=== PATIENT | female | born 1945 | race Caucasian/White ===

== ENCOUNTER 2018-11-25 13:16 | Emergency (ER) | payer MEDICARE, OTHER ==
[~2018-11-25] VITALS: Ht 172.7 cm; Wt 86.4 kg
[~2018-11-25 13:16] MED LIST: ASPIRIN CHEWABL81 MG OR; ASPIRIN81 MG PO; COLACE100 MG OR; COREG3.125 MG PO; COUMADIN2.5 MG PO; COUMADIN4 MG PO; COUMADIN5 MG OR; COUMADIN5 MG PO; COUMADIN7.5 MG OR; CRESTOR20 MG OR; DARVOCET-N 100100 MG OR; EQL PAIN RELIE500 MG PO; FLEXERIL PO; FUROSEMIDE20 MG PO; GABAPENTIN100 MG PO; GABAPENTIN400 MG PO; HYDROXYZ HCL25 MG OR; IMDUR30 MG PO; JANTOVEN5 MG OR; K-DUR/KLOR-CON10 ME1 PO; K-DUR/KLOR-CON10 MEQ PO; LASIX20 MG PO; LIPITOR40 MG PO; LOPRESSOR25 M1 PO; LOPRESSOR25 MG PO; LORTAB 1010 MG PO; LORTAB 5 OR; LORTAB 7.5 OR; LORTAB5 PO; MACROBID100 MG OR; MACROBID100 MG PO; MULTIVITAM10 OR; NEURONTIN100 MG PO; OMEPRAZOLE20 MG PO; OXYCOD/APAP1 TA3 PO; PRILOSEC20 MG/CAP PO; SENNA S1 TAB PO; SIMVASTATIN10 MG PO; SIMVASTATIN80 MG OR; TYLENOL325 MG OR; TYLENOL500 MG OR; ULTRAM50 M1 PO; ULTRAM50 MG OR; ULTRAM50 MG PO; WARFARIN2.5 MG PO; WARFARIN3 MG PO; WARFARIN5 MG PO; ZETIA10 MG OR; ZETIA10 MG PO; ZITHROMAX250 MG OR; ZITHROMAX500 MG OR; ZOCOR10 MG OR
[2018-11-25 14:40] LABS: HEMATOCRIT 38.3 % (37.0-47.0); HEMOGLOBIN 12.3 g/dl (12.0-16.0); IMMATURE GRANULOCYTES 0.2 % (0.0-5.0); MEAN CELL VOLUME 85.1 fL CALC (80.0-100.0); MEAN CORPUSCULAR HGB 27.3 pG CALC (26.0-32.0); MEAN CORPUSCULAR HGB CONC 32.1 g/L CALC (32.0-36.0); NEUT# 3.36 thou/uL (2.00-7.15); RED BLOOD COUNT 4.5 mill/uL (4.20-5.60); RED CELL DISTRI WIDTH 14.6 % (11.5-15.5)
[2018-11-25 14:46] LABS: ALBUMIN 3.9 g/dL (3.2-5.0); BILIRUBIN, TOTAL 0.7 mg/dL (0.0-1.4); CREATININE 1.2 mg/dL (0.5-1.0); POTASSIUM 3.8 mmol/l (3.5-5.1); TOTAL PROTEIN 6.3 g/dL (6.3-8.2)
[2018-11-25 17:36] LABS: URINE BILIRUBIN - DIPSTICK NEGATIVE (NEGATIVE); URINE BLOOD DIPSTICK SMALL (NEGATIVE); URINE COLOR YELLOW; URINE GLUCOSE - DIPSTICK NEGATIVE (NEGATIVE); URINE KETONE NEGATIVE (NEGATIVE); URINE LEUK ESTERASE NEGATIVE (NEGATIVE); URINE NITRITE - DIPSTICK NEGATIVE (Negative); URINE PROTEIN - DIPSTICK NEGATIVE (NEG-TRACE); URINE UROBILINOGEN - DIPSTICK 0.2 E.U./dL (0.2)
[2018-11-25 17:49] LABS: URINE SQUAMOUS EPITHELIAL CELL FEW EPI/hpf (0-FEW)
[2018-11-25 18:25] VITALS: BP 113/73
== END 2018-11-25 18:53 | disposition home or self-care (01) ==
LOC: ED 13:16
PROVIDERS: Emergency Medicine
DX: R20.8 Other disturbances of skin sensation (principal); I69.354 Hemiplegia and hemiparesis following cerebral infarction affecting left non-dominant side; I10 Essential (primary) hypertension; I25.10 Atherosclerotic heart disease of native coronary artery without angina pectoris; Z95.1 Presence of aortocoronary bypass graft

== ENCOUNTER 2019-06-13 05:05 | Emergency (ER) | payer MEDICARE, OTHER ==
[~2019-06-13] VITALS: Ht 172.7 cm; Wt 84.1 kg
[2019-06-13 05:55] LABS: HEMATOCRIT 37.2 % (37.0-47.0); HEMOGLOBIN 11.9 g/dl (12.0-16.0); IMMATURE GRANULOCYTES 0.5 % (0.0-5.0); MEAN CELL VOLUME 84.5 fL CALC (80.0-100.0); NEUT# 4.37 thou/uL (2.00-7.15); RED BLOOD COUNT 4.4 mill/uL (4.20-5.60); RED CELL DISTRI WIDTH 15.1 % (11.5-15.5)
[2019-06-13 05:59] LABS: URINE BILIRUBIN - DIPSTICK NEGATIVE (NEGATIVE); URINE BLOOD DIPSTICK MODERATE (NEGATIVE); URINE COLOR YELLOW; URINE GLUCOSE - DIPSTICK NEGATIVE (NEGATIVE); URINE KETONE NEGATIVE (NEGATIVE); URINE PROTEIN - DIPSTICK NEGATIVE (NEG-TRACE); URINE SPECIFIC GRAVITY >=1.030
[2019-06-13] MEDS ORDERED: ELIQUIS5 MG PO (05:59)
[2019-06-13] MEDS ORDERED: PROTONIX40 M2 PO (05:59)
[2019-06-13 06:12] LABS: ALBUMIN 3.8 g/dL (3.2-5.0); ALKALINE PHOSPHATASE 126 u/l (38-126); AMYLASE 75 u/l (30-110); ANION GAP 13 (6-22 (CALC)); BUN 15 mg/dL (8-23); BUN/CREATININE RATIO 12 (12-20 (CALC)); CARBON DIOXIDE 28 mmol/l (22-30); CHLORIDE 104 mmol/l (95-108); CREATININE 1.2 mg/dL (0.5-1.0); GFR 44 ML/MIN (>=60 (CALC)); GFR FOR AFR.AMER. 53 ML/MIN (>=60 (CALC)); LIPASE 327 u/l (23-300); POTASSIUM 3.9 mmol/l (3.5-5.1); SODIUM 142 mmol/l (137-146); TOTAL PROTEIN 6.7 g/dL (6.3-8.2)
[2019-06-13 06:16] LABS: URINE NITRITE - DIPSTICK POSITIVE (Negative)
[2019-06-13 06:17] LABS: URINE LEUK ESTERASE NEGATIVE (NEGATIVE)
[2019-06-13 06:18] LABS: URINE BACTERIA MANY hpf; URINE EPITHELIAL CELLS MODERATE EPI/hpf (0-FEW); URINE RBC 50-100 RBC/hpf (0-5)
[2019-06-13 06:24] LABS: MYOGLOBIN 74 ng/mL (0 - 62)
[2019-06-13 06:30] LABS: SGOT/AST 123 u/l (9-36)
[2019-06-13] MEDS ORDERED: OMNICEF300 M1 PO (07:43)
[2019-06-13 08:27] VITALS: BP 149/69
== END 2019-06-13 08:50 | disposition home or self-care (01) ==
LOC: ED 05:05
PROVIDERS: Emergency Medicine
DX: N39.0 Urinary tract infection, site not specified (principal); I10 Essential (primary) hypertension; B96.20 Unspecified Escherichia coli [E. coli] as the cause of diseases classified elsewhere; Z86.73 Personal history of transient ischemic attack (TIA), and cerebral infarction without residual deficits; Z86.718 Personal history of other venous thrombosis and embolism; Z79.01 Long term (current) use of anticoagulants

== ENCOUNTER 2019-07-22 17:37 | Emergency (ER) | payer MEDICARE, OTHER ==
[~2019-07-22] VITALS: Ht 172.7 cm; Wt 88.0 kg
[~2019-07-22 17:37] MED LIST changes: +ELIQUIS5 MG PO; +OMNICEF300 M1 PO; +PROTONIX40 M2 PO
[2019-07-22] MEDS ORDERED: ULTRAM50 M1 PO (18:24)
[2019-07-22 18:32] VITALS: BP 140/88
== END 2019-07-22 18:49 | disposition home or self-care (01) ==
LOC: ED 17:37
DX: S60.221A Contusion of right hand, initial encounter (principal); I10 Essential (primary) hypertension; I25.10 Atherosclerotic heart disease of native coronary artery without angina pectoris; I69.954 Hemiplegia and hemiparesis following unspecified cerebrovascular disease affecting left non-dominant side; I25.2 Old myocardial infarction; W22.8XXA Striking against or struck by other objects, initial encounter; Z86.718 Personal history of other venous thrombosis and embolism; Z79.01 Long term (current) use of anticoagulants

== ENCOUNTER 2019-10-29 | Emergency (ER) | payer MEDICARE, OTHER ==
[2019-10-30] MEDS ORDERED: NEURONTIN300 MG PO (00:45)
== END 2019-10-30 01:46 | disposition home or self-care (01) ==
DX: S93.402A Sprain of unspecified ligament of left ankle, initial encounter (principal); I69.354 Hemiplegia and hemiparesis following cerebral infarction affecting left non-dominant side; I10 Essential (primary) hypertension; I25.10 Atherosclerotic heart disease of native coronary artery without angina pectoris; W18.39XA Other fall on same level, initial encounter; Y92.512 Supermarket, store or market as the place of occurrence of the external cause; Y99.9 Unspecified external cause status

== ENCOUNTER 2020-05-20 15:15 | Emergency (ER) | payer MEDICARE, OTHER ==
[~2020-05-20] VITALS: Ht 172.7 cm; Wt 86.3 kg
[~2020-05-20 15:15] MED LIST changes: +NEURONTIN300 MG PO
[2020-05-20] MEDS ORDERED: CYCLOBENZAPR5 MG PO (15:27)
[2020-05-20 15:53] VITALS: BP 113/56
== END 2020-05-20 15:47 | disposition home or self-care (01) ==
LOC: ED 15:15
DX: M79.651 Pain in right thigh (principal); I10 Essential (primary) hypertension; I25.10 Atherosclerotic heart disease of native coronary artery without angina pectoris; I25.2 Old myocardial infarction; Z95.1 Presence of aortocoronary bypass graft; Z86.73 Personal history of transient ischemic attack (TIA), and cerebral infarction without residual deficits

== ENCOUNTER 2020-09-23 05:38 | Emergency (ER) | payer MEDICARE, OTHER ==
[~2020-09-23] VITALS: Ht 172.7 cm; Wt 86.3 kg
[~2020-09-23 05:38] MED LIST changes: +CYCLOBENZAPR5 MG PO
[2020-09-23 06:33] VITALS: BP 184/81
[2020-09-23] MEDS ORDERED: TRAMADOL HCL50 MG PO (06:51)
[2020-09-23] MEDS ORDERED: STERAPRED DS10 MG PO (06:51)
== END 2020-09-23 07:15 | disposition home or self-care (01) ==
LOC: ED 05:38
DX: M54.32 Sciatica, left side (principal); M47.817 Spondylosis without myelopathy or radiculopathy, lumbosacral region; I10 Essential (primary) hypertension; I25.10 Atherosclerotic heart disease of native coronary artery without angina pectoris; Z86.73 Personal history of transient ischemic attack (TIA), and cerebral infarction without residual deficits; Z95.1 Presence of aortocoronary bypass graft

== ENCOUNTER 2021-02-24 19:49 | Emergency (ER) | payer MEDICARE, MEDICAID ==
[~2021-02-24] VITALS: Ht 172.7 cm; Wt 90.0 kg
[~2021-02-24 19:49] MED LIST changes: +STERAPRED DS10 MG PO; +TRAMADOL HCL50 MG PO
[2021-02-24] MEDS ORDERED: ZETIA10 MG PO (20:12)
[2021-02-24] MEDS ORDERED: ELIQUIS5 MG PO (20:12)
[2021-02-24] MEDS ORDERED: PANTOPRAZOLE SO40 M1 PO (20:13)
[2021-02-24] MEDS ORDERED: GABAPENTIN100 MG PO (20:13)
[2021-02-24] MEDS ORDERED: CRESTOR40 MG PO (20:14)
[2021-02-24] MEDS ORDERED: POT CHLORIDE10 ME5 PO (20:14)
[2021-02-24] MEDS ORDERED: ULTRAM50 MG PO (21:58)
[2021-02-24 22:22] VITALS: BP 12/60
== END 2021-02-24 22:22 | disposition home or self-care (01) ==
LOC: ED 19:49
DX: S70.02XA Contusion of left hip, initial encounter (principal); S93.402A Sprain of unspecified ligament of left ankle, initial encounter; S90.112A Contusion of left great toe without damage to nail, initial encounter; I10 Essential (primary) hypertension; I25.10 Atherosclerotic heart disease of native coronary artery without angina pectoris; I69.954 Hemiplegia and hemiparesis following unspecified cerebrovascular disease affecting left non-dominant side; V48.4XXA Person boarding or alighting a car injured in noncollision transport accident, initial encounter; Y92.481 Parking lot as the place of occurrence of the external cause; Z95.1 Presence of aortocoronary bypass graft

== ENCOUNTER 2021-06-09 14:43 | Inpatient (IN) | payer MEDICARE, MEDICAID ==
[~2021-06-09] VITALS: Ht 172.7 cm; Wt 81.0 kg
[~2021-06-09 14:43] MED LIST changes: +CRESTOR40 MG PO; +PANTOPRAZOLE SO40 M1 PO; +POT CHLORIDE10 ME5 PO
--- NOTE | 2021-06-09 15:03 | NUR ---
PATIENT TO ROOM VIA WHEELCHAIR AND PHYSICIAN NOTIFIED OF PATIENT STATUS
[2021-06-09 15:59] LABS: HEMATOCRIT 40.3 % (37.0-47.0); HEMOGLOBIN 13.7 g/dl (12.0-16.0); IMMATURE GRANULOCYTES 0.5 % (0.0-5.0); MEAN CELL VOLUME 86.3 fL CALC (80.0-100.0); MEAN CORPUSCULAR HGB 29.3 pG CALC (26.0-32.0); NEUT# 5.59 thou/uL (2.00-7.15); RED BLOOD COUNT 4.67 mill/uL (4.20-5.60); RED CELL DISTRI WIDTH 13.9 % (11.5-15.5)
[2021-06-09 16:19] LABS: ALBUMIN 3.8 g/dL (3.2-5.0); TOTAL PROTEIN 6.9 g/dL (6.3-8.2)
[2021-06-09 16:27] LABS: INTERNATIONAL NORMALIZED RATIO 1.1 RATIO (0.7-1.3); PROTHROMBIN TIME 11.7 SECONDS (9.0-12.5)
[2021-06-09 16:29] LABS: BILIRUBIN, TOTAL 2.5 mg/dL (0.0-1.4); CREATININE 3.6 mg/dL (0.5-1.0); POTASSIUM 2.9 mmol/l (3.5-5.1)
--- NOTE | 2021-06-09 17:22 | NUR ---
TO RADIOLOGY VIA STRETCHER.
--- NOTE | 2021-06-09 20:20 | NUR ---
Admission Note Report Given to: LASHAY LEE Transported by: Wheelchair X Stretcher Transported with: X Nurse Transporter X Patent IV O2 X Mobile Lounge Driver Location: ICU X MS2 BED BEING CLEANED.
--- NOTE | 2021-06-09 21:47 | NUR ---
Reassessment of patient completed. No distress noted.
[2021-06-09 21:55] VITALS: BP 139/81
--- NOTE | 2021-06-09 21:55 | NUR ---
TO FLOOR VIA STRETCHER
--- NOTE | 2021-06-09 22:30 | NUR ---
PATIENT ADMITTED FROM ER VIA STRETCHER WITH ER STAFF IN ATTENDANCE. PATIENT IS MAX ASSIST TO TRANSFER TO BED. PATIENT WITH HISTORY OF PREVIOUS STROKE WITH LEFT SIDE WEAKNESS. SPEECH IS SLIGHTLY SLURRED BUT UNDERSTANDABLE. AWAKE ALERT AND ORIENTEDX3. STATES THAT SHE LIVES WITH HER EX- BUT HE DOES TAKE CARE OF HER. SHE ALSO [employer]. STATES THAT SHE HAS BECOME EVEN WEAKER LATELY. TELE MONITOR IN PLACE WIOTH INITIAL READING OF SR-78. IV SITE TO LAC INTACT AND HEALTHY. IVF NS HUNG AND INFUSING AT 100CC/HR. PATIENT IS IN BREIF AND INCONT OF URINE. PATIENT PROVIDED WITH DARRYL-CARE AND PURE WICK PLACED. LUNGS ARE CLEAR. ABD IS SOFT WITH HYPOACTIVE BS. STATES NO BM FOR SEVERAL DAYS. LAST BM WAS LAST WEEK. FEET ARE COLD WITH WEAK PEDAL PULSE. HEP SQ GIVEN. PATIENT ORIENTED TO ROOM AND SURROUNDINGS. INSTRUCTED ON USE OF NURSE CALL LIGHT SYSTEM, TV REMOTE AND PHONE. SAFETY PRECAUTION S REINFORCED. CALL LIGHT IN REACH. WILL CONT TO MONITOR.
[2021-06-10] VITALS: BP 133/76
--- NOTE | 2021-06-10 01:00 | NUR ---
PATIENT WITH C/O GENERALIZED PAIN-STATES THAT SHE NORMALLY TAKES NEURONTIN. NOT ORDERED AT THIS TIME. TUJRNED AND REPOSITONED. IVF PATENT AND INFUSING AT 100CC/HR. CALL LIGHT IN REACH. WILL CONT TO MONITOR.
[2021-06-10 04:00] VITALS: BP 152/66
--- NOTE | 2021-06-10 05:00 | NUR ---
PATIENT RESTING IN BED-STATES THAT SHE DIDN'T SLEEP MUCH LAST NIGHT. STILL WITH GENERALIZED PAIN. IVF NS PATENT AND INFUSING VIA LAC SITE AT 100CC/HR. TELE MONITOR IN PLACE. CALL LIGHT IN REACH. WILL CONT TO MONITOR.
[2021-06-10 06:01] LABS: URINE BLOOD DIPSTICK LARGE (NEGATIVE); URINE COLOR YELLOW; URINE GLUCOSE - DIPSTICK NEGATIVE (NEGATIVE); URINE KETONE 15 mg/dL (NEGATIVE); URINE PROTEIN - DIPSTICK 100 mg/dL (NEG-TRACE)
[2021-06-10 06:37] LABS: CREATININE 3.5 mg/dL (0.5-1.0); MAGNESIUM 2.1 mg/dL (1.6-2.3); POTASSIUM 2.9 mmol/l (3.5-5.1)
[2021-06-10 06:48] LABS: URINE BILIRUBIN - DIPSTICK NEGATIVE (NEGATIVE); URINE LEUK ESTERASE SMALL (NEGATIVE); URINE NITRITE - DIPSTICK NEGATIVE (Negative)
[2021-06-10 06:49] LABS: URINE BACTERIA MANY hpf; URINE SQUAMOUS EPITHELIAL CELL FEW EPI/hpf (0-FEW)
[2021-06-10 06:51] LABS: HEMATOCRIT 35.8 % (37.0-47.0); HEMOGLOBIN 12.1 g/dl (12.0-16.0); MEAN CORPUSCULAR HGB 29.7 pG CALC (26.0-32.0); MEAN CORPUSCULAR HGB CONC 33.8 g/dL CAL (32.0-36.0); RED BLOOD COUNT 4.07 mill/uL (4.20-5.60); RED CELL DISTRI WIDTH 14.1 % (11.5-15.5)
[2021-06-10 07:30] VITALS: BP 133/80
--- NOTE | 2021-06-10 10:54 | NUR ---
BEDSIDE REPORT RECEIVED. PT LYING IN BED WITH EYES CLOSED. PT AWOKEN TO NURSE. ASSESSMENT PERFORMED. NO COMPLAINTS/DISTRESS AT THIS TIME. WILL CONTINUE TO MONITOR.
[2021-06-10 10:55] VITALS: BP 147/73
--- NOTE | 2021-06-10 13:04 | NUR ---
Pt may benefit from CONTINUOUS [employer] MINER consult if medical team agress.
[2021-06-10] MEDS ORDERED: ASPIRIN ADULT L81 M2 PO (13:29)
[2021-06-10] MEDS ORDERED: NITROSTAT0.4 MG SL (13:51)
--- NOTE | 2021-06-10 14:00 | NUR ---
PT TRANSPPORTED VIA ANABELLE BUSINESS QUALITY ASSURANCE ANALYST WITH ASSISTANCE VIA STRETCHER TO [email or web address] FOR HYDA SCAN.
--- NOTE | 2021-06-10 14:15 | NUR ---
SPOKE WITH STAFF FROM [facility], HE EXPLAINED IV WENT BAD AND WOULD NOT FLUSH. PT IV WAS RUNNING WITH NS AT 100ML/HR JUST PRIOR TO PT LEAVING. SN SUGGESTED STAFF CALL IV TEAM FOR NEW IV PLACEMENT, [facility] STAFF AGREED.
--- NOTE | 2021-06-10 17:24 | NUR ---
PT ARRIVED BACK TO FLOOR. ANABELLE ASSIST TO TRANSFER PT AND REORIENT TO ROOM. PT HAS NO COMPLAINTS AT THIS TIME.
--- NOTE | 2021-06-10 18:11 | NUR ---
PT WAS SENT WITH NEW IV SITE TO RIGHT HAND, UNKNOWN WHO PUT IN OR ATTEMPTS MADE
--- NOTE | 2021-06-10 18:32 | NUR ---
DOSES LATE DUE TO PT BEING OFF UNIT.
[2021-06-10 19:00] VITALS: BP 140/75
--- NOTE | 2021-06-10 19:09 | NUR ---
NO REACTION TO ROCEPHIN SKIN TEST
--- NOTE | 2021-06-10 19:44 | NUR ---
PATIENT RESTING IN BED AT THIS TIME-STATES THAT SHE IS TIRED. IVF NS PATENT AND INFUSING VIA RIGHT HAND SITE AT 100CC/HR. SKIN TEST TO RIGHT FOREARM WAS NEG AND ROCEPHIN WAS HUNG ORDERED. TELE MONITOR IN PLACE. SAFETY PRECAUTIONS REINFORCED. CALL LIGHT IN REACH. WILL CONT TO MONITOR.
--- NOTE | 2021-06-10 22:00 | NUR ---
PATIENT RESTING IN BED AT THIS TIME-AWAKE ALERT AND ORIENTEDX3. PATIENT WITH C/O LEFT ARM/SHOULDER PAIN-MEDICATED WITH TYLENOL 650MG PO FOR 7/10 PAIN SCALE. PATIENT WITH IVF NS PATENT AND INFUSING VIA RIGHT HAND SITE AT 100CC/HR. SITE IS HEALTHY AT THIS TIME. TELE MONITOR IN PLACE-LAST READING WAS SR-79. PUREWICK IN PLACE AND DRAINING DARK DEONDRE URINE. OFFERED PATIENT MOM FOR CONSTIPATION-PATIENT DOESN'T KNOW WHEN SHE LAST HAD BM-STATES THAT SHE WOULD LIKE TO WAIT UNTIL MORNING TO TAKE IT-WANT TO TRY TO GET SOME SLEEP TONIGHT. ACCU-CHECK TONIGHT WAS 81. OFFERED PATIENT SNACK BUT DECLINED AT THIS TIME. SAFETY PRECAUTIONE REINFORCED. CALL LIGHT IN REACH. WILL CONT TO MONITOR.
[2021-06-11] VITALS: BP 115/64
--- NOTE | 2021-06-11 01:54 | NUR ---
PATIENT RESTING IN BED WITH EYES CLOSED AT THIS TIME. RESPS ARE EVEN AND UNLABORED. TELE MONITOR IN PLACE. IVF NS PATENT AND INFUSING VIA RIGHT HAND SITE. PUREWICK CONT TO DRAIN DARK DEONDRE URINE. CALL LIGHT IN REACH. WILL CONT TO MONITOR.
[2021-06-11 04:00] VITALS: BP 138/73
--- NOTE | 2021-06-11 05:00 | NUR ---
PATIENT RESTING IN BED AT THIS TIME WITH EYES CLOSED. RESPS ARE EVEN AND UNLABORED. TELE MONITOR IN PL ANDREW-LAST READING WAS SR-72 WITH PVC'S. PUREWICK DRAINING DARK DEONDRE URINE. IVF NS PATENT AND INFUSING VIA RIGHT HAND AT 100CC/HR. CALL LIGHT IN REACH. WILL CONT TO MONITOR.
[2021-06-11 05:41] LABS: HEMATOCRIT 34.7 % (37.0-47.0); HEMOGLOBIN 11.9 g/dl (12.0-16.0); IMMATURE GRANULOCYTES 0.4 % (0.0-5.0); MEAN CELL VOLUME 87.4 fL CALC (80.0-100.0); MEAN CORPUSCULAR HGB CONC 34.3 g/dL CAL (32.0-36.0); NEUT# 5.26 thou/uL (2.00-7.15); RED BLOOD COUNT 3.97 mill/uL (4.20-5.60); RED CELL DISTRI WIDTH 14.3 % (11.5-15.5)
[2021-06-11 05:51] LABS: CREATININE 3.6 mg/dL (0.5-1.0); POTASSIUM 3.2 mmol/l (3.5-5.1)
[2021-06-11 05:53] LABS: ALBUMIN 2.9 g/dL (3.2-5.0); BILIRUBIN, TOTAL 1.3 mg/dL (0.0-1.4); TOTAL PROTEIN 5.3 g/dL (6.3-8.2)
--- NOTE | 2021-06-11 07:15 | NUR ---
REPORT RECEIVED FROM LASHAY LEE
[2021-06-11 09:14] VITALS: BP 138/79
--- NOTE | 2021-06-11 09:15 | NUR ---
PT RESTING IN SEMI FOWLERS POSITION,A&O X3;VS OBTAINED AND ASSESSMENT COMPLETED;PT DENIES ANY CURRENT PAIN OR DISCOMFORTS,PAIN SCALE AND REPORTING EDUCATED;RESPIRATIONS EVEN AND UNLABORED ON RA;ABDOMEN DISTENDED/SOFT ON PALPATION AND ACTIVE IN ALL 4 QUADRANTS;WEAK PEDAL PULSES;PURWICK CATHETER IN PLACE;SKIN INTACT;TELE MONITORING IN PLACE;#24G TO RH INFUSING NS @ 100ML/HR,SITE APPEARS HEALTHY;#20G TO LAC FLUSHED AND PATENT,SITE APPEARS HEALTHY;PT MEDICATED WITH PRN MOM TO ASSIST WITH BOWEL CARE;PT DENIES ANY ADDITIONAL NEEDS AND IS ENCOURAGED TO CALL FOR ASSISTANCE IF NEEDED;FALL PRECAUTIONS IN PLACE WITH CALL LIGHT IN REACH;WILL CONTINUE TO MONITOR
--- NOTE | 2021-06-11 11:08 | NUR ---
PHYSICAL THERAPY AT BEDSIDE
--- NOTE | 2021-06-11 11:23 | NUR ---
PT NOTE Patient supine as entered room, patient agreed to participate in therapy session. Patient executed heel slides, hip abduction/adduction--passively for abduction, ankle pumps. Progressed to supine>sit, (MAX A) seated at bed side x2-3 min, as seated patient executed deep breathing techniques. Tray table and call bush by patient side as exited room. [facility] 6 score of 11
--- NOTE | 2021-06-11 11:42 | NUR ---
AT BEDSIDE DISCUSSING POCC.
[2021-06-11 12:00] VITALS: BP 136/71
--- NOTE | 2021-06-11 12:00 | NUR ---
PT RESTING IN SEMI FOWLERS POSITION;RESPIRATIONS EVEN AND UNLABORED ON RA;PT DENIES ANY CURRENT PAIN OR NEEDS;TELE MONITORING IN PLACE;#20G TO LAC PATENT AND #24G TO RH INFUSING NS @ 100ML/HR;PUREWICK CATHETER IN PLACE;ACCCUHECK 108, NO COVERAGE NEEDED;PT DENIES ANY ADDITIONAL NEEDS AND IS ENCOURAGED TO CALL FOR ASSISTANCE IF NEEDED;CALL LIGHT IN REACH;WILL CONTINUE TO MONITOR
--- NOTE | 2021-06-11 14:41 | NUR ---
PT MEDICATED WITH PRN TYLENOL 325MG PO FOR LEFT ARM PAIN,WILL CONTINUE TO MONITOR FOR EFFECTIVNESS
--- NOTE | 2021-06-11 16:10 | NUR ---
PT RESTING IN SEMI FOWLERS POSITION;RESPIRATIONS EVEN AND UNLABORED ON RA;PT REPORTS PRN TYLENOL EFFECTIVE TOWARDS PAIN;IV SITE PATENT INFUSING NS @ 100ML/HR,SITE APPEARS HEALTHY;PUREWICK CATHETER IN PLACE;PT ENCOURAGED TO CALL FOR ASSISTANCE IF NEEDED;CALL LIGHT IN REACH;WILL CONTINUE TO MONITOR
[2021-06-11 16:15] VITALS: BP 127/71
[2021-06-11 19:00] VITALS: BP 136/78
--- NOTE | 2021-06-11 22:00 | NUR ---
PATIENT CALLED FOR HELP REPOSITIONING. 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 TURNED FROM SIDE TO SIDE AND REPOSIONED. PUREWICK REMAINS IN PLACE DRAINING DARK DEONDRE URINE. LEFT ARM IS ELEVATED AND POSITIONED ON PILLOW FOR COMFORT. SALINE LOCK TO LAC INTACT AND HEALTHY AT THIS TIME. IVF NS PATENT AND INFUSING VIA RIGHT HAND SITE AT 100CC/HR. TELE MONITOR IN PLACE-LAST READING WAS SR-1ST DEGREE AVB. SAFETY PRECAUTIONS REINFORCED. CALL LIGHT IN REACH. WILL CONT TO MONITOR.
--- NOTE | 2021-06-11 23:46 | NUR ---
PATIENT CALLED AND C/O LEFT ARM PAIN-NEDICATED WITH TYLENOL 325MG PF ORDERED FOR PAIN. LEFT ARM READJUSTED ON PILLOW. CALL LIGHT IN REACH. WILL CONT TO MONITOR.
[2021-06-12] VITALS: BP 140/81
[2021-06-12 04:00] VITALS: BP 141/78
--- NOTE | 2021-06-12 04:00 | NUR ---
PATIENT RESTING IN BED-EYE4S CLOSED. RESPS ARE EVEN AND UNLABORED, PUREWICK DRAINING DARK CLOUDY DEONDRE URINE. IVF PATENT AND INFUSING VIA RIGHT HAND SITE AT 100CC/HR. TELE MONITOR IN PLACE-LAST READING SR-77 1ST DEGREE AVB. CALL LIGHT IN REACH. WILL CONT TO MONITOR.
[2021-06-12 05:56] LABS: HEMATOCRIT 32.5 % (37.0-47.0); HEMOGLOBIN 11.2 g/dl (12.0-16.0); MEAN CELL VOLUME 87.1 fL CALC (80.0-100.0); MEAN CORPUSCULAR HGB CONC 34.5 g/dL CAL (32.0-36.0); RED BLOOD COUNT 3.73 mill/uL (4.20-5.60); RED CELL DISTRI WIDTH 14.5 % (11.5-15.5)
[2021-06-12 06:02] LABS: CREATININE 3.9 mg/dL (0.5-1.0); MAGNESIUM 2.2 mg/dL (1.6-2.3); POTASSIUM 3.4 mmol/l (3.5-5.1)
--- NOTE | 2021-06-12 07:00 | NUR ---
REPORT RECEIVED FROM LASHAY LEE
[2021-06-12 08:10] VITALS: BP 159/89
--- NOTE | 2021-06-12 08:10 | NUR ---
PT RESTING IN SEMI FOWLERS POSITION,A&O X3;VS OBTAINED AND ASSESSMENT COMPLETED;PT REPORTS LEFT ARM PAIN RELIEVED FROM PRN TYLENOL GIVEN ON NIGHTSHIFT;RESPIRATIONS EVEN AND UNLABORED ON RA;ABDOMEN DISTENDED/SOFT ON PALPATION AND ACTIVE IN ALL 4 QUADRANTS, PT REPORTS HAVING GAS;PUREWICK CATHETER IN PLACE DRAINING DEONDRE COLORED URINE;WEAK PEDAL PULSES;SKIN INTACT;TELE MONITORING IN PLACE;#24G TO RH INFUSING NS @ 100ML/HR,SITE APPEARS HEALTHY;#20G TO LAC FLUSHED AND PATENT,SITE APPEARS HEALTHY;ACCUCHECK 91;PT MEDICATED WITH PRN MOM AND MIRLAX TO ASSIST IN BOWEL CARE;PT DENIES ANY ADDITIONAL NEEDS AND IS ENCOURAGED TO CALL FOR ASSISTANCE IF NEEDED;PT ENCOURAGED TO CALL FOR ASSISTANCE IF NEEDED;FALL PRECAUTIONS IN PLACE WITH CALL LIGHT IN REACH;WILL CONTINUE TO MONITOR
--- NOTE | 2021-06-12 08:20 | NUR ---
PHYSICAL THERAPY AT BEDSIDE WORKING WITH PT.
--- NOTE | 2021-06-12 10:16 | NUR ---
CALLED DR. CALDWELL OFFICE AT [phone] SPOKE TO DORIS AND GAVE INFORMATION REGARDING THE PT.
[2021-06-12 10:45] VITALS: BP 141/79
--- NOTE | 2021-06-12 10:45 | NUR ---
PT RESTING IN SEMI FOWLERS POSITION;RESPIRATIONS EVEN AND UNLABORED ON RA;PT DENIES ANY CURRENT PAIN OR NEEDS;TELE MONITORING IN PLACE;#24G TO RH AND #20G TO LAC PATENT, IVF INFUSING WITH EASE PER ORDER;PT REQUESTING ENEMA TO ASSIST WITH BOWEL CARE, ANRP NOTIFIED OF REQUEST;PUREWICK CATHETER IN PLACE;ACCUCHECK 99;PT ENCOURAGED TO CALL FOR ASSISTANCE;CALL LIGHT IN REACH;WILL CONTINUE TO MONITOR
--- NOTE | 2021-06-12 11:35 | NUR ---
AND CATRINA ANRP AT BEDSIDE DISCUSSING POC.
--- NOTE | 2021-06-12 11:40 | NUR ---
AT BEDSIDE DISCUSSING POC.
--- NOTE | 2021-06-12 12:40 | NUR ---
PT MEDICATED WITH PRN ULTRAM 50MG PO FOR LEFT ARM PAIN RATING 9/10 ON THE PAIN SCALE.COVID19 NASAL SWAB COMPLETED AT THIS TIME TO LEFT NARE PER ORDER,PT TOLERATED WELL.WILL CONTINUE TO MONITOR
--- NOTE | 2021-06-12 13:54 | NUR ---
PT NOTE Patient in semi-fowlers position as entered room, patient agreed to participate in therapy session. patient executed hip abduction/adduction x 10, passively for abduction, heel slides x 5, and ankle pumps x 10. Max A for bed mobility, rolling, scooting and Max A for positioning from supine>sit. Patient needed assistance with lower extremities over bed side. AMPAC 6 score of 10
--- NOTE | 2021-06-12 14:50 | NUR ---
PT RESTING IN SEMI FOWLERS POSITION;RESPIRATIONS EVEN AND UNLABORED ON RA;PT DENIES ANY CURRENT PAIN OR DISCOMFORTS;TELE MONITORING IN PLACE;X2 IV SITES REMAIN PATENT;PUREWICK CATHETER IN PLACE;PT MEDICATED WITH SUPPOSITORY PER REQUEST TO ASSIST IN BOWEL CARE;PT RE-POSITIONED TO HIGH FOWLERS POSITION;PT EDUCATED ON PLANS TO TRANSFER TO [facility] AT APPROX [id number] AND VERBALIZES UNDERSTANDING.CALLED PT DAUGHTER TO INFORM PER PT REQUEST AND SPOKE WITH PT SON IN LAW DAUGHTER WAS AT WORK;PT DENIES ANY ADDITIONAL NEEDS;CALL LIGHT IN REACH;WILL CONTINUE TO MONITOR
--- NOTE | 2021-06-12 15:20 | NUR ---
REPORT GIVEN TO LASHAY PADRON AT [facility].
--- NOTE | 2021-06-12 15:35 | NUR ---
Maureen completed functional reaching to promote independence with ADLs. Maureen sat up on bed and completed reaching forward with mod-max tactile assistance to maintain sitting balance. Maureen complained of fear of falling on multiple occassions despite tactile assistance to remain upright. Pt left in bed with call button and tray at bedside.
[2021-06-12 15:49] VITALS: BP 144/93
--- NOTE | 2021-06-12 17:28 | NUR ---
SPOKE WITH JOO AT [facility]. ETA FOR [facility] 45 MINS.
--- NOTE | 2021-06-12 18:42 | NUR ---
PT TRANSPORTED TO [facility] AT THIS TIME VIA [facility] ACCOMPANIED BY [facility] STAFF. ALL BELOGINGS LEFT WITH PT AT THIS TIME.
== END 2021-06-12 18:42 | disposition short-term general hospital (02) | DRG 445 ==
LOC: ED 14:43 → ED-I 16:40 → ED 17:33 → MS2 17:34 → ED-I 17:34 → MS2 19:58
PROVIDERS: Emergency Medicine; Nurse Practitioner; ADMIT Hospitalist; ATTEND Hospitalist
DX: K80.10 Calculus of gallbladder with chronic cholecystitis without obstruction (principal); N39.0 Urinary tract infection, site not specified; N17.9 Acute kidney failure, unspecified; I69.354 Hemiplegia and hemiparesis following cerebral infarction affecting left non-dominant side; E87.2 Acidosis; E87.1 Hypo-osmolality and hyponatremia; R74.01 Elevation of levels of liver transaminase levels; E86.9 Volume depletion, unspecified; I12.9 Hypertensive chronic kidney disease with stage 1 through stage 4 chronic kidney disease, or unspecified chronic kidney disease; N18.30 Chronic kidney disease, stage 3 unspecified; M19.90 Unspecified osteoarthritis, unspecified site; D63.8 Anemia in other chronic diseases classified elsewhere; E87.6 Hypokalemia; E78.5 Hyperlipidemia, unspecified; I25.10 Atherosclerotic heart disease of native coronary artery without angina pectoris; Z95.1 Presence of aortocoronary bypass graft; Z99.3 Dependence on wheelchair; Z90.5 Acquired absence of kidney; Z87.891 Personal history of nicotine dependence; Z86.718 Personal history of other venous thrombosis and embolism; Z20.822 Contact with and (suspected) exposure to COVID-19
CPT/HCPCS: A9537; J2805

== ENCOUNTER 2021-06-25 19:06 | Observation (INO) | payer MEDICARE, MEDICAID ==
[~2021-06-25] VITALS: Ht 167.6 cm; Wt 84.0 kg
--- NOTE | 2021-06-25 19:05 | NUR ---
REPORT RECEIVED BY Mariah WILSON RN, FROM Isabella HAMMER LPN. PT IS A PENDING TRANSFER FROM [facility].
[~2021-06-25 19:06] MED LIST changes: +ASPIRIN ADULT L81 M2 PO; +NITROSTAT0.4 MG SL
--- NOTE | 2021-06-25 19:10 | NUR ---
PT ARRIVED FROM [facility] VIA STRETCHER ACCOMPANIED BY TRANSPORT STAFF.
--- NOTE | 2021-06-25 19:15 | NUR ---
PT HR RATE RUNNING IN 200'S, STABILIZED AT 59. TRNASPORT TEAM STATES THIS SAME REBEL OCCURED WHEN THEY PICKED HER UP AND REPORTED IT HAD ALSO OCCURED DURING HER HOSPITAL STAY AT [facility].
--- NOTE | 2021-06-25 19:20 | NUR ---
VERBAL ORDERES RECIEVD FROM DR LOPEZ, PENDING TRANSFER TO ICU.
--- NOTE | 2021-06-25 19:47 | NUR ---
CALL RECEIVED FROM DR. LOPEZ REGARDING PT'S CURRENT STATUS AND NEED FOR ICU. PLAN OF CARE DISCUSSED. CALLED Raquel YUSUF RN AND ASSIGNED ICU #5 TO PATIENT.
--- NOTE | 2021-06-25 20:05 | NUR ---
PT RECEIVED TO ICU 5 FROM [facility] UNIT. TRANSFERRED IN BED. ACCOMPANIED BY Raquel MEDELLIN RN. PT ATTATCHED TO MONITOR. BEDSIDE REPORT RECEIVED. CARE OF PT ASSUMED AT THIS TIME.
--- NOTE | 2021-06-25 20:10 | NUR ---
IV ESTABLISHED TO JAVI, CLOSE TO AXILLARY CREASE. #22G. X1 ATTEMPT. PATENT WITH BLOOD RETURN. ATTEMPTED TO COLLECT LABWORK, CHEMISTRY COLLECTED, INSUFFICIENT FLOW TO COLLECT FURTHER LABS. BUE GROSSLY EDEMATOUS WITH #4 PITTING EDEMA. SKIN IS TIGHT WITH TRANSLUCENT APPEARANCE. MILD WEEPING NOTED. X2 ATTEMPTS TO COLLECT LABWORK VIA VENIPUNCTURE TO BUE UNSUCESSFUL. X1 ATTEMPT TO TO LLE UNSUCESSFUL. UNABLE TO OBTAIN LAB WORK AT THIS TIME.
[2021-06-25 20:45] VITALS: BP 134/57
[2021-06-25 20:46] LABS: CREATININE 3.2 mg/dL (0.5-1.0); MAGNESIUM 1.9 mg/dL (1.6-2.3); TOTAL PROTEIN 4.5 g/dL (6.3-8.2)
--- NOTE | 2021-06-25 20:50 | NUR ---
AFTER FURTHER UNSUCESSFUL ATTEMPT TO COLLECT ORDERED LABS VIA VENIPUNCTURE BY Susanna ALCARAZ RN AND Forrest LEMA AIR QUALITY SPECIALIST. LABS COLLECTED VIA LEFT RADIAL ARTERY. PRESSURE HELD AND DRESSING APPLIED AFTER LABS COLLECTED.
[2021-06-25 20:57] LABS: ALBUMIN 2.2 g/dL (3.2-5.0); BILIRUBIN, TOTAL 0.7 mg/dL (0.0-1.4); POTASSIUM 5.3 mmol/l (3.5-5.1)
[2021-06-25 21:00] VITALS: BP 151/57
--- NOTE | 2021-06-25 21:00 | NUR ---
SPOKE WITH DAUGHTER REGARDING UPDATES TO PT'S STATUS.
[2021-06-25 21:01] LABS: HEMATOCRIT 28.8 % (37.0-47.0); IMMATURE GRANULOCYTES 1.2 % (0.0-5.0); MEAN CELL VOLUME 97.3 fL CALC (80.0-100.0); MEAN CORPUSCULAR HGB 30.4 pG CALC (26.0-32.0); MEAN CORPUSCULAR HGB CONC 31.3 g/dL CAL (32.0-36.0); NEUT# 6.54 thou/uL (2.00-7.15); RED BLOOD COUNT 2.96 mill/uL (4.20-5.60); RED CELL DISTRI WIDTH 18.6 % (11.5-15.5)
[2021-06-25] MEDS ORDERED: HYDRALAZINE10 M2 PO (21:06)
[2021-06-25] MEDS ORDERED: ISOSORB MONO10 MG PO (21:07)
[2021-06-25] MEDS ORDERED: MIDODRINE10 MG PO (21:08)
[2021-06-25] MEDS ORDERED: TOPROL XL25 M1 PO (21:08)
--- NOTE | 2021-06-25 21:10 | NUR ---
SPOKE WITH DR. LOPEZ, PROVIDED UPDATES ON PT'S STATUS. ORDERS RECEIVED.
[2021-06-25 21:30] VITALS: BP 135/57
[2021-06-25 22:00] VITALS: BP 118/45
[2021-06-25 23:00] VITALS: BP 136/52
[2021-06-26] VITALS (18 sets, daily range): BP systolic 93–136; BP diastolic 43–72
[2021-06-26 06:04] LABS: HEMATOCRIT 28.6 % (37.0-47.0); HEMOGLOBIN 9.1 g/dl (12.0-16.0); MEAN CELL VOLUME 97.3 fL CALC (80.0-100.0); MEAN CORPUSCULAR HGB CONC 31.8 g/dL CAL (32.0-36.0); NEUT# 5.28 thou/uL (2.00-7.15); RED BLOOD COUNT 2.94 mill/uL (4.20-5.60)
[2021-06-26 06:39] LABS: CREATININE 3.4 mg/dL (0.5-1.0); MAGNESIUM 1.9 mg/dL (1.6-2.3); POTASSIUM 4.8 mmol/l (3.5-5.1)
--- NOTE | 2021-06-26 06:50 | NUR ---
REPORT FROM EARL METZ. ASSUMED PT CARE.
--- NOTE | 2021-06-26 07:15 | NUR ---
PT NOTED YELLING OUT. PT REQUESTING WATER. ORAL FLUIDS PROVIDED AT THIS TIME. PT DENIES ANY OTHER WANTS OR NEEDS. CALL LIGHT WITHIN REACH. WILL CONTINUE TO MONITOR.
--- NOTE | 2021-06-26 08:34 | NUR ---
DR LOPEZ AT BEDSIDE.
--- NOTE | 2021-06-26 09:43 | NUR ---
CONSULT CALLED TO [facility] OFFICE PER DR. LOPEZ.
--- NOTE | 2021-06-26 10:49 | NUR ---
CONSULT CALLED TO DR FISHER FOR CARDIOLOGY CONSULT PER DR LOPEZ AT THIS TIME.
--- NOTE | 2021-06-26 10:58 | NUR ---
CASE MANAGEMENT AT BEDSIDE.
--- NOTE | 2021-06-26 11:59 | NUR ---
PT REQUESTS PEANUT BUTTER AND JELLY SANDWICH. CALLED TO DIETARY AT THIS TIME FOR REQUEST.
--- NOTE | 2021-06-26 12:48 | NUR ---
PT C/O GENERALIZED PAIN, REPOSITIONED IN BED X2 PERSON ASSIST. PT VERBALIZED EFFECTIVENESS. TAMMIE REMAINS PATENT. O2 @ 1L/M VIA NC. CALL LIGHT WITHIN REACH. WILL CONTINUE TO MONITOR.
--- NOTE | 2021-06-26 14:38 | NUR ---
PT PLACED ON BEDPAN AT THIS TIME. CALL LIGHT WITHIN REACH, INSTRUCTED PT TO CALL WHEN FINISHED. WILL CONTINUE TO MONITOR.
--- NOTE | 2021-06-26 14:48 | NUR ---
PT REMOVED OFF BEDPAN. NO BM AT THIS TIME. REPOSITIONED IN BED. CALL LIGHT WITHIN REACH. WILL CONTINUE TO MONITOR.
--- NOTE | 2021-06-26 16:42 | NUR ---
PT REPOSITIONED ON RIGHT SIDE WITH PILLOWS. NO APPARENT DISTRESS NOTED. OFFLOADED HEALS AT THIS TIME. CHO REMAINS PATENT. OFFERED ORAL FLUIDS. CALL LIGHT WITHIN REACH. WILL CONTINUE TO MONITOR.
--- NOTE | 2021-06-26 18:09 | NUR ---
PT REFUSED TO EAT DINNER TRAY. PEANUT BUTTER AND JELLY SANDWICH PROVIDED PT TOOK A COUPLE OF BITES AT THIS TIME. NO APPARENT DISTRESS NOTED. PT DROWSY BUT EASILY AROUSABLE. CALL LIGHT WITHIN REACH. WILL CONTINUE TO MONITOR.
[2021-06-27] VITALS (18 sets, daily range): BP systolic 105–140; BP diastolic 56–80
[2021-06-27 05:48] LABS: URINE BILIRUBIN - DIPSTICK NEGATIVE (NEGATIVE); URINE BLOOD DIPSTICK LARGE (NEGATIVE); URINE CLARITY SL CLOUDY; URINE COLOR YELLOW; URINE GLUCOSE - DIPSTICK NEGATIVE (NEGATIVE); URINE KETONE NEGATIVE (NEGATIVE); URINE LEUK ESTERASE SMALL (Negative); URINE NITRITE - DIPSTICK NEGATIVE (Negative); URINE PROTEIN - DIPSTICK TRACE mg/dL (NEG-TRACE); URINE SPECIFIC GRAVITY 1.015; URINE UROBILINOGEN - DIPSTICK 0.2 E.U./dL (0.2)
[2021-06-27 05:51] LABS: HEMATOCRIT 28.4 % (37.0-47.0); IMMATURE GRANULOCYTES 1.2 % (0.0-5.0); MEAN CELL VOLUME 97.3 fL CALC (80.0-100.0); MEAN CORPUSCULAR HGB 30.8 pG CALC (26.0-32.0); MEAN CORPUSCULAR HGB CONC 31.7 g/dL CAL (32.0-36.0); NEUT# 3.62 thou/uL (2.00-7.15); RED BLOOD COUNT 2.92 mill/uL (4.20-5.60); RED CELL DISTRI WIDTH 18.6 % (11.5-15.5)
[2021-06-27 06:00] LABS: URINE SQUAMOUS EPITHELIAL CELL FEW EPI/hpf (0-FEW)
[2021-06-27 06:02] LABS: URINE YEAST MANY hpf
[2021-06-27 06:06] LABS: ALBUMIN 2.3 g/dL (3.2-5.0); CREATININE 3.2 mg/dL (0.5-1.0); MAGNESIUM 1.8 mg/dL (1.6-2.3); POTASSIUM 4.7 mmol/l (3.5-5.1)
--- NOTE | 2021-06-27 08:00 | NUR ---
patient is alert to self, and . she first told me her name was Mary. she is hard of hearing. she doesn't use the call light when educated her on it, she rather scream for help than use the call light. does know she is in the hospital but doesnt know what hospital or what city she is in. 2mm perrla bilateral eyes. clear lung sounds, normal heart sounds. running sinus rythem. active bowel sounds. obese soft non tender abdomen. does have steffi above her umbilicus. edema in arms and legs 2+. strong pulses. weak hand corrections lieutenant will not hold her her arms or legs to check for drifts. has soft heel boots on. states she cant feed herself or give herself any water, she will need help doing so. safety measures in place. call light in reach. will continue to monitor per hospital's policy.
--- NOTE | 2021-06-27 10:00 | NUR ---
PATIENT IS RESTING IN BED AT THIS TIME.
--- NOTE | 2021-06-27 12:35 | NUR ---
SPOKE TO PATIENTS DAUGHTER ON THE PHONE, UPDATE GIVEN ON HER MOTHER.
--- NOTE | 2021-06-27 14:00 | NUR ---
PATIENT IS SCREAMING OUT FOR "MARISSA", "HELP". WHEN WALKED IN THE ROOM SHE JUST ASK FOR WATER. GAVE HER SOME WATER.
--- NOTE | 2021-06-27 14:08 | NUR ---
PATIENT'S DAUGHTER CALLED, INFORMED HER ABOUT THE HOSPICE CONSULT, CASE MANAGMENT WAS INVLOVED. DAUGHTER STATED SHE UNDERSTANDS AND THAT SHE WILL HANDLE IT LATER WITH THE HOSPICE PEOPLE.
--- NOTE | 2021-06-27 14:35 | NUR ---
SPOKE TO HOSPICE NURSE, SHE STATED SHE WILL GET WITH THE DAUGHTER JOHAN TO SPEAK FURTHER ON THE MOTHER'S HOSPICE SITUATION.
--- NOTE | 2021-06-27 15:16 | NUR ---
PATIENT WILL BE SEEN BY HOSPICE BETWEEN 0900 AND 1000 TOMORROW MORNING ACCORDING TO HOSPICE NURSE [place].
--- NOTE | 2021-06-27 16:11 | NUR ---
PATIENT IS SLEEPING IN BED
--- NOTE | 2021-06-27 18:00 | NUR ---
PATIENT IS YELLING OUT FOR A JORJE.
--- NOTE | 2021-06-27 19:00 | NUR ---
Pt is in bed low fowlers position c/o being hot, temp assessed afebrile. blankets removed, she stated that she has been hot all day. Staff has noticed it does not seem that the a/c is working properly in all of ICU, maintenance called.
--- NOTE | 2021-06-27 20:21 | NUR ---
PT MEDCICATED FOR PAIN GENERALIZED. PT ALSO REPOSITIONED AT THIS TIME. PT WAS ABLE TO SWOLLOW PILLS W/OUT ISSUE.
[2021-06-28] VITALS (8 sets, daily range): BP systolic 118–141; BP diastolic 51–115
--- NOTE | 2021-06-28 00:25 | NUR ---
pt sleeping, v/s assessed, dnr band placed on pt and at doorway. No s/o distress, v/s stable. Mccord cath draining dark yellow clear urine to gravity. 02 NC on 1L for 02 sat of 100%
--- NOTE | 2021-06-28 03:00 | NUR ---
PT HEARD YELLING OUT, SHE APPEARED ASLEEP WHEN I WENT IN. I AWOKE HER AND ASKED IF SHE WAS IN PAIN, SHE ASKED FOR TYLENOL/PROVIDED AT THIS TIME. REPOSITIONED PT ALSO. SHE IS ABLE TO RAISE HER ARM FOR ME, BUT AT TIMES REFUSES. SHE HELD CUP OF WATER AND DRANK HERSELF, PREVIOUS TIME SHE REFUSED TO LIFT ARM TO HOLD THE CUP.
--- NOTE | 2021-06-28 05:30 | NUR ---
Mccord cath draining to gravity dark yellow clear urine, emptied of 800cc at this time. Pt is sleeping, no s/o distress noted. V/S stable. Resp even and non-labored
--- NOTE | 2021-06-28 08:00 | NUR ---
PATIENT IS A/O X3, WAS ABLE TO ANSWER THE QUESTIONS CORRECTLY TODAY. REQUESTED WATER AND ICE CREAM, BROUGHT HER FRESH ICE WATER WITH ICE CREAM SHE REFUSED HER BREAKFAST ONLY WANTED ICE CREAM. DOES WELL WITHOUT ANY SUPPLMENTAL OXYGEN. ON ROOM AIR SATS GREATER THAN 95%. DENIES PAIN AT THIS TIME. CLEAR LUNG SOUNDS. PRESENT BOWEL SOUNDS. SOFT, OBESE ABDOMEN. GENERLIZED EDEMA. STRONG PULSES. VITALS ARE STABLE. LEFT SIDE WEAKER THAN RIGHT. ABLE TO WEED THINNER MY HANDS WHEN ASKED. SHE WAS ABLE TO FEED HERSELF ICE CREAM. SAFETY MEASURES IN PLACE. CALL LIGHT IN REACH. WILL CONTINUE TO MONITOR PER HOSPITAL'S POLICY.
[2021-06-28 08:36] LABS: HEMOGLOBIN 9.2 g/dl (12.0-16.0); IMMATURE GRANULOCYTES 0.6 % (0.0-5.0); MEAN CELL VOLUME 98.3 fL CALC (80.0-100.0); MEAN CORPUSCULAR HGB 31.2 pG CALC (26.0-32.0); MEAN CORPUSCULAR HGB CONC 31.7 g/dL CAL (32.0-36.0); NEUT# 3.99 thou/uL (2.00-7.15); RED BLOOD COUNT 2.95 mill/uL (4.20-5.60); RED CELL DISTRI WIDTH 18.8 % (11.5-15.5)
[2021-06-28 09:07] LABS: CREATININE 2.8 mg/dL (0.5-1.0); MAGNESIUM 1.7 mg/dL (1.6-2.3); POTASSIUM 4.7 mmol/l (3.5-5.1)
--- NOTE | 2021-06-28 10:00 | NUR ---
PATIENT IS AWAITING HOSPICE NURSE FOR EVALUTION.
--- NOTE | 2021-06-28 12:00 | NUR ---
PATIENT HAS BEEN SEEN BY HOSPICE NURSE, PCR SENT DOWN, RESULTS ARE NEGATIVE. WAITING FOR PLACEMENT BY SEAN. DINH THE SEAN WORKER IS IN THE BREAKROOM NOW WORKING ON HER PAPERWORK.
--- NOTE | 2021-06-28 13:35 | NUR ---
PATIENT'S DAUGHTER WAS CALLED TO ALLOW HER AND TWO OTHERS TO VISIT THE PATIENT FOR TEN MINTUES PRIOR TO HER BEING DISCHARGED TO HOSPICE. SHE STATED SHE WILL COME IN 30 MINTUES.
--- NOTE | 2021-06-28 15:00 | NUR ---
PATIENT'S 3 DAUGHTERS ARE HERE, ONE AT A TIME WILL COME UP FOR 10 MINTUES AND VISIT THEIR MOTHER. ALL THREE DAUGHTERS SIGNED THE WAIVER FORM ABOUT BEING AT RISK TO COVID AND THAT THEY ARE AWARE OF WHAT THEYRE CONSENTING TO. ALL THREE WERE INFORMED TO WEAR A MASK WHILE IN THE HOSPITAL EVEN WHEN WHEN THEY ARE IN THE PATIENT'S ROOM THEY MUST CONTINUE TO WEAR IT. THEY STATED THEY UNDERSTOOD.
--- NOTE | 2021-06-28 15:45 | NUR ---
[facility] TRANSPORT CAME TO [facility]RINKER PATIENT.
--- NOTE | 2021-06-28 16:01 | NUR ---
PATIENT IS OFF THE FLOOR, WITH A MASK, STABLE.
== END 2021-06-28 16:00 | disposition hospice, inpatient (51) ==
LOC: MS2 19:06 → ICU 19:06
PROVIDERS: Internal Medicine Nephrology; ADMIT Internal Medicine; ATTEND Internal Medicine
DX: I13.0 Hypertensive heart and chronic kidney disease with heart failure and stage 1 through stage 4 chronic kidney disease, or unspecified chronic kidney disease (principal); I50.23 Acute on chronic systolic (congestive) heart failure; N18.30 Chronic kidney disease, stage 3 unspecified; N17.9 Acute kidney failure, unspecified; I47.2 Ventricular tachycardia; I25.5 Ischemic cardiomyopathy; I25.10 Atherosclerotic heart disease of native coronary artery without angina pectoris; I25.810 Atherosclerosis of coronary artery bypass graft(s) without angina pectoris; I48.0 Paroxysmal atrial fibrillation; D63.1 Anemia in chronic kidney disease; E87.5 Hyperkalemia; E87.1 Hypo-osmolality and hyponatremia; E86.9 Volume depletion, unspecified; E78.5 Hyperlipidemia, unspecified; Q60.0 Renal agenesis, unilateral; F03.90 Unspecified dementia, unspecified severity, without behavioral disturbance, psychotic disturbance, mood disturbance, and anxiety; I69.954 Hemiplegia and hemiparesis following unspecified cerebrovascular disease affecting left non-dominant side; E66.9 Obesity, unspecified; I25.2 Old myocardial infarction; Z66 Do not resuscitate; Z51.5 Encounter for palliative care; Z68.29 Body mass index [BMI] 29.0-29.9, adult; Z90.49 Acquired absence of other specified parts of digestive tract; Z95.1 Presence of aortocoronary bypass graft; Z95.5 Presence of coronary angioplasty implant and graft; Z79.01 Long term (current) use of anticoagulants; Z87.891 Personal history of nicotine dependence; Z86.718 Personal history of other venous thrombosis and embolism; Z20.822 Contact with and (suspected) exposure to COVID-19